=== PATIENT | female | born 1970 | race Caucasian/White ===

== ENCOUNTER 2016-08-30 10:34 | Day surgery (SDC) | payer BC ==
[~2016-08-30 10:34] MED LIST: ALLEGRA180 PO; C25; DYMISTA NASAL S23 GM NAS; FLONASE NAS; HYCET 7.5 MG-3473 ML PO; LEVOTHYROXIN100 MCG PO; LEVOXYL100 MCG PO; LIBRAX PO; MOBIC15 MG PO; PCET PO; PREV30 PO; VITAMIN D1000 UNI1 PO; Z-PAK PO
== END 2016-08-30 23:59 | disposition home or self-care (01) ==
LOC: DMU 10:34
PROVIDERS: Internal Medicine Gastroenterology
PROC: 4A0B88Z Measurement of Gastrointestinal Motility, Via Natural or Artificial Opening Endoscopic (ICD-10-PCS; principal; 2016-08-30 10:30)
DX: K31.84 Gastroparesis (principal); Z88.2 Allergy status to sulfonamides; Z88.5 Allergy status to narcotic agent; Z88.1 Allergy status to other antibiotic agents; Z88.8 Allergy status to other drugs, medicaments and biological substances
CPT/HCPCS: A9270-GY; C1894